=== PATIENT | female | born 1975 | race Hispanic/Latino ===

== ENCOUNTER 2021-02-05 00:41 | Emergency (ER) | payer OTHER ==
[~2021-02-05] VITALS: Ht 139.7 cm; Wt 75.0 kg
[2021-02-05 03:12] VITALS: BP 149/79
== END 2021-02-05 03:10 | disposition home or self-care (01) | DRG 552 ==
LOC: ED 00:41
DX: S16.1XXA Strain of muscle, fascia and tendon at neck level, initial encounter (principal); S29.012A Strain of muscle and tendon of back wall of thorax, initial encounter; V49.40XA Driver injured in collision with unspecified motor vehicles in traffic accident, initial encounter